=== PATIENT | male | born 1995 | race Caucasian/White ===

== ENCOUNTER 2018-07-25 19:02 | Inpatient (IN) | payer OTHER ==
[~2018-07-25] VITALS: Ht 172.7 cm; Wt 131.7 kg
[2018-07-25 20:07] LABS: BASO # 0.1 (0.0-0.2); BASO % 0.4 % (0.0-2.0); EOS # 0.1 (0.0-0.7); EOS % 0.4 % (0-4.0); GRAN # 13.4 (1.4-6.5); GRAN % 76.3 % (42.2-75.2); HEMATOCRIT 46.7 % (42.0-52.0); HEMOGLOBIN 15.7 g/dl (13.5-18.0); LYMPH # 2.9 (1.2-3.4); LYMPH % 16.4 % (20.0-51.0); MEAN CELL VOLUME 90 fl (80.0-100.0); MEAN CORPUSCULAR HEMOGLOBIN 30 pg (27.0-31.0); MEAN CORPUSCULAR HGB CONC 34 g/dl (33.0-37.0); MEAN PLATELET VOLUME 10.8 fl (7.4-10.4); MONO # 0.9 (0.1-0.6); MONO % 4.8 % (1.7-9.3); PLATELET COUNT 240 K/mm3 (130-400); REDCELL DISTRIBUTION WIDTH-CV 12.9 % (11.5-14.5)
[2018-07-25 20:24] LABS: ALBUMIN 4.5 gm/dL (3.5-5.0); BILIRUBIN,TOTAL 0.5 mg/dL (0.0-1.0); CALCIUM 9.6 mg/dL (8.4-10.2); CREATININE, serum 1.04 (0.66-1.25); TOTAL PROTEIN 7.7 gm/dL (6.4-8.2)
[2018-07-25 22:49] VITALS: BP 144/70; PULSE 96; TEMP 99.1
[2018-07-25 22:50] VITALS: BP 144/70; PULSE 96; TEMP 99.1
[2018-07-25 23:12] VITALS: BP 144/70; PULSE 96
--- NOTE | 2018-07-25 23:15 | NUR ---
PT ADMITTED WITH LT ANKLE Fx, FRACTURED RIBS AND AND RT PNEUMOTHORAX. SEE 5 PAGE ASSESSMENT. DILAUDID SPECIAL EDUCATION ASSOCIATE INITIATED. NO N/V. PT STATED HE WASN'T HAVING ANY PAIN AFTER INITIAL SPECIAL EDUCATION ASSOCIATE BOLUS GIVEN. PT REFUSED TO HAVE HIS LLE ELEVATED ON PILLOWS.
[2018-07-26] VITALS (7 sets, daily range): BP systolic 125–152; BP diastolic 66–82; PULSE 76–98; TEMP 97.8–99.6
--- NOTE | 2018-07-26 05:14 | NUR ---
PT HAS BEEN SLEEPING OFF AND ON EXCEPT WHEN MEDICAL BILLING ASSISTANT WAKES HIM UP WITH BEEPING NOISE. LLE ELEVATED. ICE APPLIED.
[2018-07-26 05:52] LABS: BASO % 0.2 % (0.0-2.0); EOS % 0.2 % (0-4.0); GRAN # 8.6 (1.4-6.5); GRAN % 76.1 % (42.2-75.2); HEMATOCRIT 40.2 % (42.0-52.0); LYMPH # 1.6 (1.2-3.4); LYMPH % 14.1 % (20.0-51.0); MEAN CELL VOLUME 92 fl (80.0-100.0); MEAN CORPUSCULAR HEMOGLOBIN 30 pg (27.0-31.0); MEAN CORPUSCULAR HGB CONC 33 g/dl (33.0-37.0); MEAN PLATELET VOLUME 10.7 fl (7.4-10.4); MONO % 8.7 % (1.7-9.3); PLATELET COUNT 198 K/mm3 (130-400); RED BLOOD COUNT 4.38 M/mm3 (4.20-5.60); REDCELL DISTRIBUTION WIDTH-CV 13.2 % (11.5-14.5)
[2018-07-26 05:54] LABS: HEMOGLOBIN 13.3 g/dl (13.5-18.0)
--- NOTE | 2018-07-26 06:01 | NUR ---
PT UNABLE TO URINATE. ORDER FOR STRAIGHT CATH OBTAINED. BLADDER SCAN READING 900 mL. PT STRAIGHT CATH'D FOR 1150 mL. SAMPLE SENT TO LAB.
[2018-07-26 06:35] LABS: MUCOUS Present /lpf; PH 5 (5-8); SQUAMOUS EPITHELIAL 0-2 /hpf; URINE APPEARANCE Clear; URINE BACTERIA None Seen /hpf; URINE BILIRUBIN Negative (NEGATIVE); URINE BLOOD 2+ (NEGATIVE); URINE COLOR Yellow; URINE GLUCOSE Negative (NEGATIVE); URINE KETONE Trace (NEGATIVE); URINE LEUKOCYTE ESTERASE Negative (NEGATIVE); URINE NITRATE Negative (NEGATIVE); URINE PROTEIN(semi-quant) 1+ (NEGATIVE); URINE UROBILINOGEN Negative (NEGATIVE)
[2018-07-26 06:45] LABS: COLLECTION METHOD CLEAN CATCH
--- NOTE | 2018-07-26 07:46 | NUR ---
Patient alert and oriented, answers questions appropriately. See assessment. LLE with hard splint in place, no numbness or tingling, able to wiggle toes. Popliteal pulse palpable. LLE elevated on pillow and ice pack in place. Lungs CTA, no shortness or breath or use of accessory muscles noted. No other c/o at this time.
--- NOTE | 2018-07-26 07:50 | NUR ---
Berna Lr and Jennifer here to see patient.
[2018-07-26 12:15] LABS: HEMATOCRIT 39.2 % (42.0-52.0); HEMOGLOBIN 12.8 g/dl (13.5-18.0)
--- NOTE | 2018-07-26 14:28 | NUR ---
Plan is to stay with parents locally and then go home after surgery to [facility]. Patient reports that his PCP is Dr. Harvey with [facility]. Patient indicated that he obtains his medications from [facility] in [place] but could get them here at [facility]. Patient indicated that his mother is his EMR contact Ronel Johnsonperla . Patient indicated that he was waiting on ortho to come by and talk about sugery and getting it scheduled in [facility] or [place]. Patient reports that he is using the DME scooter and does not have and Adv-Dir. Patient indicated that he does not need home health services. Parents will transport. Patient denies having any additional needs.
[2018-07-27 04:00] VITALS: BP 142/76; PULSE 83; TEMP 98.8
[2018-07-27 05:59] LABS: HEMATOCRIT 40.5 % (42.0-52.0); HEMOGLOBIN 13.6 g/dl (13.5-18.0)
--- NOTE | 2018-07-27 06:28 | NUR ---
SHWETHA FOR PAIN. PT NOT EAGER TO MOVE. DID USE SCOOTER ONCE. PT NOT VERY COMPLIANT WITH ELEVATION AND ICE.
[2018-07-27 07:31] VITALS: BP 146/65; PULSE 97; TEMP 98.4
--- NOTE | 2018-07-27 08:30 | NUR ---
Patient resting in bed. He had breakfast & did well. Lle in splint & ice pack, he refused to elevate at this time. Patient had breakfast & did well. He denies sob. Will monitor.
[2018-07-27] MEDS ORDERED: NORCO 325 MG-7.1 TAB PO (08:48)
--- NOTE | 2018-07-27 12:06 | NUR ---
Patient ready for discharge. rounded & orders obtained. Patient parents at bedside for discharge teaching. His father went to [facility] to get norco script filled. We reviewed medication safety. Patient family handled knee walker, not able to find one in [place] today. Patient getting one today in [place] when they get home this afternoon. Therapy saw patient this am. Patient aware of non weight bearing status & importance of ice and elevation. Radiology dept I clouded all imaging to [facility]. Fax sheet for follow up sent Doctor César Jean Baptiste ortho [facility] office and to patient PCP Twyla shine pac at [facility] [employer] [facility] for rib fx. Number provided & stress importance of patient being seen tmrw. Patient wheeled out with all belongigns, his parents taking him home. Deny further questions or concerns.
== END 2018-07-27 12:14 | disposition home or self-care (01) | DRG 964 ==
LOC: COL.ER 19:02 → SURG 21:40
PROVIDERS: Emergency Medicine; ADMIT Surgery
DX: S92.112A Displaced fracture of neck of left talus, initial encounter for closed fracture (principal); S22.41XA Multiple fractures of ribs, right side, initial encounter for closed fracture; S06.9X1A Unspecified intracranial injury with loss of consciousness of 30 minutes or less, initial encounter; S27.321A Contusion of lung, unilateral, initial encounter; S27.0XXA Traumatic pneumothorax, initial encounter; Z68.41 Body mass index [BMI] 40.0-44.9, adult; R33.9 Retention of urine, unspecified; E66.9 Obesity, unspecified; V28.0XXA Motorcycle driver injured in noncollision transport accident in nontraffic accident, initial encounter; Y93.39 Activity, other involving climbing, rappelling and jumping off; F17.210 Nicotine dependence, cigarettes, uncomplicated; S92.002A Unspecified fracture of left calcaneus, initial encounter for closed fracture
CPT/HCPCS: OP; G0378; J1170; J2270; J2405; J7030; Q4045; Q9967